=== PATIENT | female | born 1945 | race Caucasian/White ===

== ENCOUNTER → 2016-09-10 | Outpatient (CLI) | payer OTHER ==
[~2016-09-10] MED LIST: ACET1TAB84 PO; ASCA500 PO; ASPI81TA28 PO; ATOR-22 PO; AVP150 PO; CHOL100010 PO; DYZ PO; FERR325T74 PO; METO25TA56 PO; PRLSR20 PO; [UNRECOGNIZED DRUG - CODE] PO
[2016-09-10 13:04] LABS: THYROID STIMULATING HORMONE 0.129 uIu/ml (0.300-4.500)
[2016-09-10 14:20] LABS: INFLUENZA A PCR Neg for Influ A (NEG); INFLUENZA B PCR Neg for Influ B (NEG)
== END | disposition home or self-care (01) ==
LOC: C.LABBFT 09:09
PROVIDERS: ATTEND Internal Medicine
DX: E05.90 Thyrotoxicosis, unspecified without thyrotoxic crisis or storm (principal); J06.9 Acute upper respiratory infection, unspecified

== ENCOUNTER → 2016-11-04 | Outpatient (CLI) | payer OTHER ==
[2016-11-04 13:23] LABS: THYROID STIMULATING HORMONE 0.246 uIu/ml (0.300-4.500)
== END | disposition home or self-care (01) ==
LOC: C.LABBFT 09:26
PROVIDERS: ATTEND Internal Medicine
DX: E05.90 Thyrotoxicosis, unspecified without thyrotoxic crisis or storm (principal)

== ENCOUNTER → 2016-11-11 | Outpatient (CLI) | payer OTHER ==
--- NOTE | 2016-11-11 12:17 | MAMMOGRAPHY REPORT ---
BILATERAL DIGITAL SCREENING MAMMOGRAM WITH CAD: 11/11/2016 CLINICAL HISTORY: Routine screening. Patient has no complaints. TECHNIQUE: Bilateral CC and MLO views were obtained. Current study was also evaluated with a Comput er Aided Detection (CAD) system. COMPARISON: Comparison is made to exams dated: 11/08/2015 mammogram, 11/06/2014 mammogram, 11/04/2013 mammogram, 05/23/2013 mammogram, 11/19/2012 mammogram, and 11/03/2012 mammogram - [facility]. BREAST COMPOSITION: There are scattered areas of fibroglandular density in both breasts. FINDINGS: There are a few scattered benign-appearing microcalcifications in the breasts. No suspici ous mass, architectural distortion or cluster of microcalcifications is seen. IMPRESSION: ACR BI-RADS CATEGORY 1: NEGATIVE There is no mammographic evidence of malignancy. A 1 year screening mammogram is recommended. The p atient will receive written notification of the results. Approximately 10% of breast cancers are not detected with mammography. A negative mammographic repor t should not delay biopsy if a clinically suggestive mass is present. Steph Nieves M.D. ay/:11/11/2016 09:22:12 Media Coordinator: Nelda CRUZ(Rhonda)(Juan Carlos), [facility] letter sent: Normal 1/2 BI-RADS Code: ACR BI-RADS Category 1: Negative
== END | disposition home or self-care (01) ==
LOC: C.MAMM 08:45
PROVIDERS: ATTEND Internal Medicine
DX: Z12.31 Encounter for screening mammogram for malignant neoplasm of breast (principal)

== ENCOUNTER → 2017-01-06 | Outpatient (CLI) | payer OTHER ==
[2017-01-06 13:01] LABS: THYROID STIMULATING HORMONE 1.21 uIu/ml (0.300-4.500)
== END | disposition home or self-care (01) ==
LOC: C.LABBFT 08:17
PROVIDERS: ATTEND Internal Medicine
DX: E05.90 Thyrotoxicosis, unspecified without thyrotoxic crisis or storm (principal)

== ENCOUNTER → 2017-02-03 | Outpatient (CLI) | payer OTHER | END | disposition home or self-care (01) | LOC: C.MAMM 09:24 | PROVIDERS: ATTEND Internal Medicine | DX: M85.851 Other specified disorders of bone density and structure, right thigh (principal); M85.852 Other specified disorders of bone density and structure, left thigh ==

== ENCOUNTER → 2017-05-07 | Outpatient (CLI) | payer OTHER ==
[2017-05-07 12:23] LABS: CHOLESTEROL/HDL RATIO 2.4
== END | disposition home or self-care (01) ==
LOC: C.LABBFT 09:49
PROVIDERS: ATTEND Internal Medicine
DX: E78.5 Hyperlipidemia, unspecified (principal)

== ENCOUNTER → 2017-11-10 | Outpatient (CLI) | payer OTHER ==
[2017-11-10 16:38] LABS: BASO % 1.1 %; BASO ABS # 0.05 K/uL (0-0.2); EOS % 2.2 %; HEMATOCRIT 37.3 % (37-47); HEMOGLOBIN 12.2 g/dL (12.0-16.0); IG# 0.01 K/uL (0.00-0.02); LYMPH % 25.4 %; LYMPH ABS # 1.16 K/uL (1.2-3.4); MEAN CELL VOLUME 93.3 fL (80-100); MEAN CORPUSCULAR HEMOGLOBIN 30.5 pg (25-34); MEAN CORPUSCULAR HGB CONC 32.7 g/dl (32-36); MEAN PLATELET VOLUME 10.8 fL (7.4-10.4); MONO ABS # 0.64 K/uL (0.11-0.59); NEUT % 57.1 %; PLATELET COUNT 219 K/uL (130-400); RED CELL DISTRIBUTION WIDTH CV 13.9 % (11.5-14.5); RED CELL DISTRIBUTION WIDTH SD 47.7 fL (36.4-46.3); WHITE BLOOD COUNT 4.56 K/uL (4.8-10.8)
[2017-11-10 16:48] LABS: ALT/SGPT 23 U/L (12-78); BLOOD UREA NITROGEN 26 mg/dl (7-18); CALCIUM 9.5 mg/dl (8.5-10.1); CARBON DIOXIDE 27 mmol/L (21-32); CREATININE 1.02 mg/dl (0.60-1.20); GLUCOSE 94 mg/dl (70-99); SODIUM 139 mmol/L (136-145)
[2017-11-10 16:59] LABS: ALKALINE PHOSPHATASE 99 U/L (45-117); AST/SGOT 20 U/L (15-37); TOTAL PROTEIN 7.1 gm/dl (6.4-8.2)
== END | disposition home or self-care (01) ==
LOC: C.LABBFT 11:06
PROVIDERS: ATTEND Internal Medicine
DX: I10 Essential (primary) hypertension (principal); E05.90 Thyrotoxicosis, unspecified without thyrotoxic crisis or storm; E55.9 Vitamin D deficiency, unspecified

== ENCOUNTER → 2017-11-12 | Outpatient (CLI) | payer OTHER ==
--- NOTE | 2017-11-12 14:43 | MAMMOGRAPHY REPORT ---
BILATERAL DIGITAL SCREENING MAMMOGRAM TOMOSYNTHESIS WITH CAD: 11/12/2017 CLINICAL HISTORY: Routine screening. Patient has no complaints. TECHNIQUE: Breast tomosynthesis in addition to standard 2D mammography was performed. Current study was also evaluated with a Computer Aided Detection (CAD) system. COMPARISON: Comparison is made to exams dated: 11/11/2016 mammogram, 11/08/2015 mammogram, 11/06/2014 ma mmogram, 11/04/2013 mammogram, 05/23/2013 mammogram, and 11/19/2012 mammogram - [facility] enter. BREAST COMPOSITION: There are scattered areas of fibroglandular density in both breasts. FINDINGS: No suspicious masses, calcifications, or areas of architectural distortion are noted in ei ther breast. There has been no significant interval change compared to prior exams. IMPRESSION: ACR BI-RADS CATEGORY 1: NEGATIVE There is no mammographic evidence of malignancy. A 1 year screening mammogram is recommended. The pa tient will receive written notification of the results. Approximately 10% of breast cancers are not detected with mammography. A negative mammographic report should not delay biopsy if a clinically suggestive mass is present. Kassandra Mello M.D. /:11/12/2017 09:37:59 D[employer] Bike Mechanic: Amparo Jones [facility] letter sent: Normal 1/2 BI-RADS Code: ACR BI-RADS Category 1: Negative
== END | disposition home or self-care (01) ==
LOC: C.MAMM 08:54
PROVIDERS: ATTEND Internal Medicine
DX: Z12.31 Encounter for screening mammogram for malignant neoplasm of breast (principal)

== ENCOUNTER → 2017-11-24 | Outpatient (CLI) | payer OTHER ==
--- NOTE | 2017-11-24 12:47 | DIAGNOSTIC IMAGING REPORT ---
SOFT TISS HEAD/NECK-THYROID CLINICAL HISTORY: 72 years-old Female presenting with R94.6 Abnormal thyroid [id number]. TECHNIQUE: Real-time grayscale and color Doppler ultrasound imaging of the thyroid and base of the neck was performed. COMPARISON: Thyroid scan from 2014. FINDINGS: Right lobe: Heterogeneous echotexture secondary to the presence of multiple nodules. The right lobe of the thyroid measures 7.2 x 3.7 x 2.8 cm. No parenchymal hyperemia. Index nodule(s) enumerated below: 1. Dominant ill-defined heterogeneously lower pole hyperechoic nodule measuring 4.2 x 3.5 x 3.6 cm containing several foci of coarse calcification. Left lobe: Heterogeneous echotexture. The left lobe of the thyroid measures 5.7 x 2.1 x 2.0 cm. No parenchymal hyperemia. No nodules. Isthmus: The isthmus measures 8 mm in thickness. No parenchymal hyperemia. No nodules. IMPRESSION: Heterogeneous enlarged thyroid with multinodular right lobe. Dominant ill-defined heterogeneous nodule at the lower pole. Fine-needle aspiration could be considered if this has not previously been performed. Electronically signed by: Du Parr M.D. 11/24/2017 12:46 PM Dictated Date/Time: 11/24/2017 12:43 PM
== END | disposition home or self-care (01) ==
LOC: C.ULTR 12:14
PROVIDERS: ATTEND Internal Medicine
DX: E04.9 Nontoxic goiter, unspecified (principal); R94.6 Abnormal results of thyroid function studies

== ENCOUNTER → 2017-12-04 | Outpatient (CLI) | payer OTHER ==
--- NOTE | 2017-12-04 11:59 | DIAGNOSTIC IMAGING REPORT ---
ULTRASOUND-GUIDED FINE-NEEDLE ASPIRATION OF A RIGHT THYROID NODULE HISTORY: Right thyroid nodule. GOITER,RT LOBE COMPARISON: None. PROCEDURE: Written informed consent was obtained. The neck was prepped and draped in the usual sterile fashion. 1% lidocaine was used for local anesthesia. A total of 2 passes using a 25-gauge needle were made through the right thyroid nodule under ultrasound guidance. Specimens were given to the on-site pathologist who determined adequate tissue for diagnosis. The patient tolerated the procedure well. There were no immediate complications. IMPRESSION: Successful ultrasound-guided fine-needle aspiration of a right thyroid nodule. Electronically signed by: Kevin Vazquez M.D. 12/04/2017 11:57 AM Dictated Date/Time: 12/04/2017 11:57 AM
== END | disposition home or self-care (01) ==
LOC: C.ULTR 10:31
PROVIDERS: ATTEND Internal Medicine
DX: E04.9 Nontoxic goiter, unspecified (principal)